=== PATIENT | female | born 1985 | race Caucasian/White ===

== ENCOUNTER 2018-11-25 07:19 | Outpatient (CLI) | payer SELFPAY ==
--- NOTE | 2018-11-25 07:30 | NUR ---
PATIENT TP LR 5 FOR CHECK OF LOWER BACK PAIN. CHANGED INTO GOWN. ON EFM, VITALS OBTAINED, SVE BY MANUEL, ASSESMENT COMPLETE. PATIENT STATES SHE WENT TO THE EMERGENCY ROOM 1.5 MONTHS AGO AND FOUND OUT SHE WAS 7.5 MONTHS . PATIENT BELIEVES SHE IS 39-40 WEEKS . PATIENT STATES HER A FEW MONTHS AGO FROM COMPICATIONS OF A INJURY. PATIENT STATES SHE HAS A 12 YEAR OLD DAUGHTER. PATIENT STATES SHE LIVES NEAR [place] AND PLANS TO DELIVER THERE BUT NO DOCTOR WOULD TAKE HER THIS FAR ALONG. PATIENT WAS RUNNING ERRANDS IN [place] AND HAD LOWER BACK PAIN, SO HEADED TO L&D. PATIENT DENIES CONTRACTIONS, LEAKING OF FLUID OR BLEEDING.
[2018-11-25 07:37] VITALS: BP 120/80; PULSE 119; TEMP 98.1
[2018-11-25 08:30] VITALS: BP 137/82; PULSE 122; TEMP 98.1
[2018-11-25 09:12] LABS: BASO % 0.4 % (0.0-2.0); EOS # 0.1 (0.0-0.7); EOS % 1.1 % (0-4.0); HEMATOCRIT 38.6 % (37.0-47.0); HEMOGLOBIN 13.3 g/dl (12.5-16.0); LYMPH # 1.5 (1.2-3.4); LYMPH % 20.9 % (20.0-51.0); MEAN CELL VOLUME 91 fl (80.0-100.0); MEAN CORPUSCULAR HEMOGLOBIN 31 pg (27.0-31.0); MEAN CORPUSCULAR HGB CONC 35 g/dl (33.0-37.0); MEAN PLATELET VOLUME 10.2 fl (7.4-10.4); MONO # 0.5 (0.1-0.6); PLATELET COUNT 320 K/mm3 (130-400); RED BLOOD COUNT 4.23 M/mm3 (4.10-5.30); REDCELL DISTRIBUTION WIDTH-CV 12.9 % (11.5-14.5)
[2018-11-25 09:26] LABS: TRICYCLIC ANTIDEPRESS URINE NEGATIVE
[2018-11-25 09:30] VITALS: BP 115/76; PULSE 95
[2018-11-25 09:50] LABS: COLLECTION METHOD CATHETER
[2018-11-25 10:04] LABS: MUCOUS Present /lpf; PH 6 (5-8); SQUAMOUS EPITHELIAL 0-2 /hpf; URINE APPEARANCE Hazy; URINE BACTERIA None Seen /hpf; URINE BILIRUBIN Negative (NEGATIVE); URINE BLOOD 1+ (NEGATIVE); URINE COLOR Amber; URINE GLUCOSE Negative (NEGATIVE); URINE KETONE Negative (NEGATIVE); URINE LEUKOCYTE ESTERASE Trace (NEGATIVE); URINE NITRATE Negative (NEGATIVE); URINE PROTEIN(semi-quant) Negative (NEGATIVE)
[2018-11-25 10:30] VITALS: BP 115/64; PULSE 98
--- NOTE | 2018-11-25 11:06 | NUR ---
PATIENT HAVING CONTRACTIONS, BUT NOT FEELING THEM
[2018-11-25 11:30] VITALS: BP 124/76; PULSE 100
[2018-11-25 12:30] VITALS: BP 118/79; PULSE 87
--- NOTE | 2018-11-25 14:00 | NUR ---
ULTRASOUND- OFF [facility] [id number]
[2018-11-25 16:22] LABS: HEPATITIS B SURFACE ANTIGEN Negative (Negative)
[2018-11-29 15:02] LABS: RPR (VDRL) XXX
== END 2018-11-25 14:15 | disposition home or self-care (01) ==
LOC: LDRO 07:19 → LDR 07:55 → LDRO 14:15
PROVIDERS: Obstetrics & Gynecology
DX: O99.89 Other specified diseases and conditions complicating pregnancy, childbirth and the puerperium (principal); M54.9 Dorsalgia, unspecified; Z3A.39 39 weeks gestation of pregnancy
CPT/HCPCS: OP